=== PATIENT | female | born 1950 | race Caucasian/White ===

== ENCOUNTER 2017-01-04 04:20 | Emergency (ER) | payer MEDICARE, BC ==
[~2017-01-04] VITALS: Ht 162.6 cm; Wt 80.1 kg
[~2017-01-04 04:20] MED LIST: CEPH500C3 PO; SIMV20 PO; TOPR25TA2 PO
[2017-01-04 04:26] VITALS: BP 113/65; PULSE 66; RESP 16; TEMP 97.5; O2SAT 97
[2017-01-04 04:40] VITALS: BP 124/73; PULSE 68; RESP 16; TEMP 97.6; O2SAT 99
[2017-01-04] MEDS ORDERED: SIMV20TA PO (04:55)
[2017-01-04] MEDS ORDERED: METO25TA6 PO (04:55)
[2017-01-04] MEDS ORDERED: ALLO100T PO (04:55)
[2017-01-04] MEDS ORDERED: TOLT1CAP4 PO (04:55)
--- NOTE | 2017-01-04 05:11 | PD ---
HPI Chief Complaint: Skin Problem Time Seen by Provider: 05:02 Travel History International Travel<30 days: No Contact w/Intl Traveler<30days: No Traveled to known affect area: No History of Present Illness HPI 66 old female presents to the emergency department for hives. Patient states that she has had symptoms for approximate 4 hours. Patient states that she's had no change in medications dietary intake lotions creams linens close furniture however did note that she did eat dupree beans last night for the first time in a very long time does not recall a specific spices or prior symptoms with dupree beans and can think of no other possible new or possible allergens. Patient denies any lip tongue or throat swelling. No stridor or hoarseness. No chest pain no shortness of breath no wheezing no nausea no vomiting no diarrhea no abdominal cramping near-syncope or syncope. Patient has urticarial rash to the lower abdomen and proximal thighs upper extremities and to a lesser extent the chest and back. Patient has taken no medications states the pruritus probably brought her to the emergency room for evaluation. Patient rates pain 0/10 in intensity. PFSH Past Medical History Narrative Medical Elevated heart rate and dyslipidemia Gouty arthritis no tobacco use nursing notes reviewed Heart Rhythm Problems: Yes (hx. elevated heart heart takes medication for) High Cholesterol: Yes Diminished Hearing: No Gout: Yes Immunizations Current: Yes Tetanus Vaccination: < 5 Years Influenza Vaccination: Yes ?: Not Past Surgical History Other Surgery: Yes (well-developed) Social History Alcohol Use: No Tobacco Use: No Substance Use: No Allergies-Medications (Allergen,Severity, Reaction): Coded Allergies: Diclofenac (Verified Allergy, Severe, Anaphylaxis, 01/04/17) Erythromycin (Verified Allergy, Severe, HIVES, 01/04/17) Penicillin (Verified Allergy, Severe, GI, 01/04/17) Reported Meds & Prescriptions Reported Meds & Active Scripts Active Reported Allopurinol 100 Mg Tab 100 Mg PO DAILY Metoprolol Succinate ER 24 HR (Metoprolol Succinate) 25 Mg Tab 25 Mg PO DAILY Tolterodine ER (Tolterodine Tartrate) 2 Mg Cap 2 Mg PO DAILY Simvastatin 20 Mg Tab 20 Mg PO DAILY Review of Systems General / Constitutional: No: Fever, Chills HENT: No: Congestion Cardiovascular: No: Chest Pain or Discomfort Respiratory: No: Shortness of Breath Gastrointestinal: No: Vomiting, Abdominal Pain Genitourinary: No: Flank Pain Musculoskeletal: No: Myalgias, Arthralgias Skin: Positive Rash, Positive Itching, Positive Hives Hematologic/Lymphatic: No: Lymph Node Enlargement Physical Exam Narrative GENERAL: Well-developed well-nourished female in no acute distress no respiratory distress; no stridor no hoarseness. SKIN: Warm and dry. Diffuse urticaria HEAD: Normocephalic. EYES: No scleral icterus. No injection or drainage. ENT: no lip tongue or throat swelling NECK: Supple, trachea midline. No JVD or lymphadenopathy. CARDIOVASCULAR: Regular rate and rhythm without murmurs, gallops, or rubs. RESPIRATORY: Breath sounds equal bilaterally. No accessory muscle use. GASTROINTESTINAL: Abdomen soft, non-tender, nondistended. MUSCULOSKELETAL: No cyanosis, or edema. BACK: Nontender without obvious deformity. No CVA tenderness. Data Data Last Documented VS Vital Signs Date Time Temp Pulse Resp B/P Pulse Ox O2 Delivery O2 Flow Rate FiO2 01/04/17 04:43 68 16 01/04/17 04:40 97.6 124/73 99 01/04/17 04:26 Room Air Orders Ranitidine (Zantac) (01/04/17 05:15) Prednisone (Deltasone) (01/04/17 05:15) Diphenhydramine (Benadryl) (01/04/17 05:15) Famotidine (Pepcid) (01/04/17 05:15) MDM Medical Decision Making Medical Screen Exam Complete: Yes Emergency Medical Condition: Yes Medical Record Reviewed: Yes Differential Diagnosis Acute allergic reaction, idiopathic urticaria, anaphylaxis, angioedema, contact dermatitis Narrative Course Patient presents with urticaria and administered Benadryl 25 mg by mouth prednisone 50 mg by mouth Zantac 300 mg by mouth At 5:48 AM patient is clinically improved and stable for outpatient management Diagnosis Primary Impression: Acute allergic reaction Qualified Code: T78.40XA - Acute allergic reaction, initial encounter Referrals: Primary Care Physician call for appointment Patient Instructions: General Instructions Additional Instructions: Complete course of steroid as prescribed Use Zantac 150 twice daily for 7 days for allergic reaction Use Benadryl 25-50 mg as often as every 4-6 hours over the next 7 days for allergic reaction symptoms Increase fluid hydration Do not eat dupree beans or suspected allergen type foods Follow-up with your primary care provider Return to the emergency department for any concerns or change in condition Med/Other Pt SpecificInfo: Prescription(s) given Scripts Methylprednisolone Dosepak (Medrol Dosepak)4 Mg Dspk4 Mg PO DIRECTED #1 DSPK Ref 0 Per Pharmacist direction Prov:Lulú Samaniego MD 01/04/17 Lulú Samaniego MD Jan 04, 2017 05:11
[2017-01-04] MEDS ORDERED: FAMOTIDINE 20 MG TAB PO SCH (05:15)
[2017-01-04] MEDS ORDERED: predniSONE 50 MG TAB PO ONE (05:15)
[2017-01-04] MEDS ORDERED: RANITIDINE HCL 150 MG TAB PO ONE (05:15)
[2017-01-04] MEDS ORDERED: diphenhydrAMINE HCL 25 MG CAP PO ONE (05:15)
[2017-01-04] MEDS ORDERED: MEDR4PAK PO (05:55)
[2017-01-04 05:58] VITALS: BP 101/61
== END 2017-01-04 06:04 | disposition home or self-care (01) ==
LOC: PHED 04:20
DX: T78.40XA Allergy, unspecified, initial encounter (principal); E78.00 Pure hypercholesterolemia, unspecified; M10.9 Gout, unspecified; Z79.899 Other long term (current) drug therapy
CPT/HCPCS: 99283; J7512